=== PATIENT | male | born 1935 | race Caucasian/White ===

== ENCOUNTER → 2019-05-07 | Outpatient (CLI) | payer MEDICARE ==
[~2019-05-07] MED LIST: ALLO100T30 PO; ASPI-152 PO; BISA10SU65 PR; DONE10TA14 PO; GLIP5TAB10 PO; HYDR-3237 PO; INDO50CA15 PO; LISI-170 PO; METF10002 PO; PRAV20TA2 PO; REGADENOSON 0.4 MG/5 ML SYRINGE ONE; SENN-177 PO; [UNRECOGNIZED DRUG - CODE] PO
== END | disposition home or self-care (01) ==
LOC: CFH 08:48
PROVIDERS: ATTEND Registered Nurse
DX: I08.3 Combined rheumatic disorders of mitral, aortic and tricuspid valves (principal); I25.10 Atherosclerotic heart disease of native coronary artery without angina pectoris; I44.0 Atrioventricular block, first degree; I45.10 Unspecified right bundle-branch block; I10 Essential (primary) hypertension; E78.5 Hyperlipidemia, unspecified
CPT/HCPCS: 78452; 93017; 93306; A9502; J2785

== ENCOUNTER 2020-07-28 15:15 | Emergency (ER) | payer MEDICARE ==
[~2020-07-28] VITALS: Ht 177.8 cm; Wt 100.0 kg
[~2020-07-28 15:15] MED LIST changes: -REGADENOSON 0.4 MG/5 ML SYRINGE ONE
--- NOTE | 2020-07-28 15:19 | NUR ---
BIB EMS FROM HOME AFTER PT HAD MGLF TRIPPED ON CHAIR AND FELL HITTING HEAD ON PIECE OF FURNITURE. DENIES FEELING DIZZY/LIGHTHEADED PRIOR TO FALL. HEMATOMA NOTED TO OCCIPITAL L SIDE HEAD. NOT ON BLOOD THINNERS. AOX4. NEURO INTACT. C/O JORDAN POST FALL. 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 MONITORS APPLIED. NADN. VSS. STUDENT AT BEDSIDE FOR EVAL. Addendum: 07/28/20 at 1522 by BNICHOLS DENIES LOC.
--- NOTE | 2020-07-28 16:35 | NUR ---
PT RESTING ON GURNEY. NADN. OWEN.
[2020-07-28] MEDS ORDERED: ACETAMINOPHEN 500 MG TABLET PO ONE (17:30)
[2020-07-28 17:33] VITALS: BP 94/68
--- NOTE | 2020-07-28 17:33 | NUR ---
PT TO RESTROOM AND BACK W/ ASSISTANCE. PT AWARE OF POC FOR DC AND IS AGREEABLE.
[2020-07-28] MEDS ORDERED: ACETAMINOPHEN 500 MG TABLET ONE (17:53)
== END 2020-07-28 18:37 | disposition home or self-care (01) ==
LOC: ED 18:30
DX: S09.90XA Unspecified injury of head, initial encounter (principal); S49.92XA Unspecified injury of left shoulder and upper arm, initial encounter; W01.0XXA Fall on same level from slipping, tripping and stumbling without subsequent striking against object, initial encounter; Y93.89 Activity, other specified; Y92.098 Other place in other non-institutional residence as the place of occurrence of the external cause; Y99.8 Other external cause status
CPT/HCPCS: 70450; 72125; 99285